=== PATIENT | female | born 1975 | race Caucasian/White ===

== ENCOUNTER 2024-06-10 07:20 | Emergency (ER) | payer SELFPAY ==
[~2024-06-10] VITALS: Ht 162.6 cm; Wt 54.0 kg
[~2024-06-10 07:20] MED LIST: AMOXICILLIN500 MG PO; BENTYL10 MG PO; BIRTH CONTROL IN ARM; CHERATUSSIN OR; FLEXERIL PO; IMPLANON68 MG; LEVOTHROID125 MCG PO; LEVOTHROID150 MCG PO; LEVOTHROID175 MCG PO; LEVOTHYROXIN125 MC1 PO; LEVOTHYROXIN137 MCG PO; LEVOTHYROXIN150 MC1 PO; NAPROSYN500 MG PO; OMEPRAZOLE20 MG PO; PRILOSEC20 MG OR; SYNTHROID100 MCG PO; SYNTHROID175 MCG PO; SYNTHROID75 MCG OR; TAM75CAP OR; ULTRAM50 M1 PO
[2024-06-10] MEDS ORDERED: PAXLOVID 10 X 11 TAB PO (09:05)
[2024-06-10 09:10] VITALS: BP 138/103
== END 2024-06-10 09:14 | disposition home or self-care (01) | DRG 179 ==
LOC: ED 07:20
DX: U07.1 COVID-19 (principal); J02.9 Acute pharyngitis, unspecified; R05.9 Cough, unspecified; R51.9 Headache, unspecified; R52 Pain, unspecified; F41.9 Anxiety disorder, unspecified; F17.210 Nicotine dependence, cigarettes, uncomplicated; Z85.850 Personal history of malignant neoplasm of thyroid